=== PATIENT | male | born 1960 | race Two or more races ===

== ENCOUNTER 2021-02-15 17:35 | Emergency (ER) | payer OTHER ==
[~2021-02-15] VITALS: Ht 182.9 cm; Wt 99.8 kg
[2021-02-15] MEDS ORDERED: ONDANSETRON HCL 4 MG/2 ML VIAL IV ONE (17:45)
[2021-02-15] MEDS ORDERED: SODIUM CHLORIDE 0.9% 1,000 ML IV ONE ×2 (17:45→19:45)
[2021-02-15] MEDS ORDERED: PANTOPRAZOLE 40 MG/10 ML VIAL INJ IV ONE (17:45)
[2021-02-15 18:01] LABS: Basophils # (auto) 0.1 10 ^3/uL (0-0.2); Basophils % (auto) 1.2 % (0.0-2.0); Eosinophils # (auto) 0.2 10 ^3/uL (0-0.8); Eosinophils % (auto) 2.6 % (0.0-7.0); Hematocrit 39.2 % (41.0-53.0); Hemoglobin 13.5 g/dL (13.5-17.5); Lymphocytes # (auto) 1.7 10 ^3/uL (0.4-5.4); Lymphocytes % (auto) 21.1 % (10.0-50.0); Mean Corpuscular Hgb Conc. 34.5 g/dL (32.0-36.0); Mean Corpuscular Volume 92.6 fL (80.0-100.0); Monocytes # (auto) 0.8 10 ^3/uL (0-1.3); Monocytes % (auto) 9.9 % (0.0-12.0); Neutrophils # (auto) 5.2 10 ^3/uL (1.6-8.6); Neutrophils % (auto) 65.2 % (37.0-80.0); Nucleated Red Blood Cells % 0.1 %; Red Blood Cells 4.23 10^6/uL (4.5-5.90); Red Cell Distribution Width 17.4 % (11.8-14.3)
[2021-02-15 18:22] LABS: Albumin 3.5 g/dL (3.4-5.0); Anion Gap 16 (5-15); Blood Urea Nitrogen 5 mg/dL (7-18); Calcium 8.8 mg/dL (8.5-10.1); Carbon Dioxide 21 mmol/L (21-32); Chloride 101 mmol/L (98-107); Glucose 130 mg/dL (74-106); Lipase 188 U/L (73-393); Magnesium 1.9 mg/dL (1.6-2.6); Sodium 138 mmol/L (136-145)
[2021-02-15 18:29] LABS: Alanine Aminotransferase 117 U/L (16-61); Alkaline Phosphatase 160 U/L (45-117); Aspartate Aminotransferase 194 U/L (15-37); Bilirubin, Total 0.9 mg/dL (0.2-1.0); GFR African American 195 mL/min; GFR Non-African American 161 mL/min
[2021-02-15 18:38] LABS: INR 1.02 (0.9-1.15); Partial Thromboplastin Time 24.4 sec (23.0-31.2)
[2021-02-15 18:56] LABS: BUN/Creatinine Ratio 9.1
[2021-02-15 18:59] LABS: Potassium 2.8 mmol/L (3.5-5.1)
[2021-02-15] MEDS ORDERED: THIAMINE 100mg/ml INJ (200mg/2ml VIAL) IV ONE (19:45)
[2021-02-15] MEDS: POTASSIUM CHL 20MEQ/100ML 100 ML IV SCH (22:25)
[2021-02-15] MEDS ORDERED: cefTRIAXone 1GM/50ML D5W 50 ML IV ONE (22:30)
[2021-02-16] MEDS: POTASSIUM CHL 20MEQ/100ML 100 ML IV SCH (01:20)
[2021-02-16] MEDS ORDERED: OMEPRAZOLE 20MG/10ML ORAL SUSP PO ONE (02:00)
[2021-02-16] MEDS ORDERED: MORPHINE SULFATE 4 MG/ML SYR/VIAL IV ONE (02:00)
[2021-02-16] MEDS ORDERED: ONDANSETRON HCL 4 MG/2 ML VIAL IV ONE (02:00)
[2021-02-16 04:51] LABS: Urine Bacteria MANY /hpf (None Seen); Urine Blood TRACE /uL (Negative); Urine Mucus FEW (None Seen); Urine Specific Gravity 1.011 (1.001-1.035); Urine WBC 58 /hpf (0 - 3)
[2021-02-16 04:57] LABS: BUN/Creatinine Ratio 9.3; Calcium 7.5 mg/dL (8.5-10.1); Potassium 3.4 mmol/L (3.5-5.1)
[2021-02-16] MEDS ORDERED: LORazepam 2MG/ML-1ML VIAL IV ONE ×2 (07:45)
[2021-02-16 10:02] VITALS: BP 149/98
== END 2021-02-16 10:27 | disposition short-term general hospital (02) ==
LOC: ER 17:35 → EDBD 17:35 → ER 02-16 10:27
DX: R10.84 Generalized abdominal pain (principal); R11.2 Nausea with vomiting, unspecified; F10.20 Alcohol dependence, uncomplicated; R79.89 Other specified abnormal findings of blood chemistry; E87.6 Hypokalemia; I10 Essential (primary) hypertension; G40.909 Epilepsy, unspecified, not intractable, without status epilepticus; E78.5 Hyperlipidemia, unspecified; E66.8 Other obesity; Y90.8 Blood alcohol level of 240 mg/100 ml or more; Z20.822 Contact with and (suspected) exposure to COVID-19; Z68.29 Body mass index [BMI] 29.0-29.9, adult; Z88.0 Allergy status to penicillin; Z79.899 Other long term (current) drug therapy
CPT/HCPCS: 36415; 71045; 74176; 76705; 80048; 80053; 80320; 81001; 83690; 83735; 84484; 85025; 85610; 85730; 87086; 87426; 96361; 96365; 96366; 96367; 96368; 96375; 96376; 99285; C9113; J0696; J2060; J2270; J2405; J3411; J3480; J7030; 93005

== ENCOUNTER 2021-06-22 13:04 | Emergency (ER) | payer OTHER ==
[~2021-06-22] VITALS: Ht 182.9 cm; Wt 90.7 kg
[2021-06-22 15:36] LABS: Hematocrit 43.4 % (41.0-53.0); Hemoglobin 14.3 g/dL (13.5-17.5); Mean Corpuscular Hemoglobin 31.6 pg (28.0-32.0); Mean Corpuscular Hgb Conc. 32.9 g/dL (32.0-36.0); Mean Corpuscular Volume 96.1 fL (80.0-100.0); Red Blood Cells 4.51 10^6/uL (4.5-5.90); Red Cell Distribution Width 15.5 % (11.8-14.3)
[2021-06-22 15:41] LABS: Basophils % (manual) 0 (0.0-2.0); Blast Cells 0; Eosinophils % (manual) 0 (0-7); Metamyelocytes % 0; Myelocytes % 0; Promyelocytes % 0; Reactive Lymphocytes 0
[2021-06-22 15:53] LABS: Albumin 3.7 g/dL (3.4-5.0); Anion Gap 17 (5-15); Blood Urea Nitrogen 13 mg/dL (7-18); Calcium 9.1 mg/dL (8.5-10.1); Carbon Dioxide 25 mmol/L (21-32); Chloride 96 mmol/L (98-107); Glucose 145 mg/dL (74-106); Magnesium 1.7 mg/dL (1.6-2.6); Sodium 138 mmol/L (136-145)
[2021-06-22 15:58] LABS: Alanine Aminotransferase 81 U/L (16-61); Alkaline Phosphatase 249 U/L (45-117); Aspartate Aminotransferase 164 U/L (15-37); BUN/Creatinine Ratio 12.4; GFR African American 92 mL/min; GFR Non-African American 76 mL/min; Total Protein 7.4 g/dL (6.4-8.2)
[2021-06-22 16:13] LABS: Potassium 2.9 mmol/L (3.5-5.1)
[2021-06-22 17:10] LABS: Band Neutrophils % (manual) 1; Lymphocytes % (manual) 13 (10.0-50.0); Monocytes % (manual) 8 (0-12)
[2021-06-22 17:13] VITALS: BP 137/92
[2021-06-22] MEDS ORDERED: POTASSIUM EFFERVESENT TAB 25 MEQ PO STA (19:52)
== END 2021-06-22 20:51 | disposition home or self-care (01) ==
LOC: ER 13:04 → EDBD 13:04 → ER 20:51
DX: E87.6 Hypokalemia (principal); E78.5 Hyperlipidemia, unspecified; I10 Essential (primary) hypertension
CPT/HCPCS: 36415; 70450; 71045; 74176; 80053; 83735; 84484; 85007; 85027; 93005

== ENCOUNTER 2021-06-23 17:38 | Inpatient (IN) | payer OTHER ==
[~2021-06-23] VITALS: Ht 175.3 cm; Wt 101.4 kg
[2021-06-23] MEDS ORDERED: SODIUM CHLORIDE 0.9% 1,000 ML IV ONE ×2 (18:30→19:45)
[2021-06-23 18:45] LABS: Basophils # (auto) 0.1 10 ^3/uL (0-0.2); Basophils % (auto) 0.9 % (0.0-2.0); Eosinophils # (auto) 0 10 ^3/uL (0-0.8); Eosinophils % (auto) 0.2 % (0.0-7.0); Hematocrit 40.9 % (41.0-53.0); Hemoglobin 13.5 g/dL (13.5-17.5); Lymphocytes # (auto) 1.2 10 ^3/uL (0.4-5.4); Lymphocytes % (auto) 12.1 % (10.0-50.0); Mean Corpuscular Hemoglobin 31.4 pg (28.0-32.0); Mean Corpuscular Hgb Conc. 32.9 g/dL (32.0-36.0); Mean Corpuscular Volume 95.3 fL (80.0-100.0); Monocytes % (auto) 10.2 % (0.0-12.0); Neutrophils # (auto) 7.3 10 ^3/uL (1.6-8.6); Neutrophils % (auto) 76.6 % (37.0-80.0); Nucleated Red Blood Cells % 0.1 %; Red Cell Distribution Width 15.6 % (11.8-14.3); White Blood Cell 9.5 10^3/uL (4.4-10.8)
[2021-06-23 19:02] LABS: Calcium 8.1 mg/dL (8.5-10.1)
[2021-06-23 19:09] LABS: BUN/Creatinine Ratio 13.2; Total Protein 6.3 g/dL (6.4-8.2)
[2021-06-23] MEDS ORDERED: AMIODARONE HCL 150 MG in D5W 5% 100 ML IV ONE (19:15)
[2021-06-23] MEDS ORDERED: NOREPINEPHRINE 8 MG/250ML KIT 250 ML IV SCH (19:15)
[2021-06-23 19:17] LABS: Potassium 2.6 mmol/L (3.5-5.1)
[2021-06-23] MEDS ORDERED: AMIODARONE 450mg/250ml AE 250 ML IV SCH (19:30)
[2021-06-23] MEDS ORDERED: LACTATED RINGER'S 1,000 ML IV ONE (19:45)
[2021-06-23] MEDS ORDERED: ACETAMINOPHEN 500 MG TAB PO ONE (20:30)
[2021-06-23] MEDS: POTASSIUM CHL 20MEQ/100ML 100 ML IV SCH ×3 (20:31→23:28)
[2021-06-23] MEDS ORDERED: MORPHINE SULFATE INJECTION 2 MG/ML SYRG IV PRN (21:15)
[2021-06-23] MEDS ORDERED: NITROGLYCERIN 0.4 MG SL TAB SL PRN (21:15)
[2021-06-23] MEDS ORDERED: ONDANSETRON HCL 4 MG/2 ML VIAL IV PRN (21:15)
[2021-06-23 21:53] LABS: Lactic Acid w/Reflex 4.4 mmol/L (0.4-2.0)
[2021-06-23] MEDS: MAGNESIUM SULFATE 1GM/100ML 100 ML IV SCH ×3 (22:08→23:20)
[2021-06-23 23:50] VITALS: BP 128/80
[2021-06-24 00:30] VITALS: BP 128/80
[2021-06-24] MEDS: AMIODARONE 450mg/250ml AE 250 ML IV SCH ×2 (01:54→17:13)
[2021-06-24 05:00] VITALS: BP 130/68
[2021-06-24 05:38] LABS: Basophils # (auto) 0.1 10 ^3/uL (0-0.2); Basophils % (auto) 0.8 % (0.0-2.0); Eosinophils # (auto) 0 10 ^3/uL (0-0.8); Eosinophils % (auto) 0.4 % (0.0-7.0); Hematocrit 35.8 % (41.0-53.0); Hemoglobin 11.8 g/dL (13.5-17.5); Lymphocytes # (auto) 1.1 10 ^3/uL (0.4-5.4); Lymphocytes % (auto) 13.4 % (10.0-50.0); Mean Corpuscular Hemoglobin 31.7 pg (28.0-32.0); Monocytes # (auto) 0.7 10 ^3/uL (0-1.3); Monocytes % (auto) 8.5 % (0.0-12.0); Neutrophils # (auto) 6.1 10 ^3/uL (1.6-8.6); Neutrophils % (auto) 76.9 % (37.0-80.0); Nucleated Red Blood Cells % 0.1 %; Red Blood Cells 3.73 10^6/uL (4.5-5.90); Red Cell Distribution Width 15.4 % (11.8-14.3); White Blood Cell 7.9 10^3/uL (4.4-10.8)
[2021-06-24 05:59] LABS: Albumin 2.6 g/dL (3.4-5.0); Anion Gap 11 (5-15); Blood Urea Nitrogen 11 mg/dL (7-18); Calcium 7.2 mg/dL (8.5-10.1); Carbon Dioxide 24 mmol/L (21-32); Chloride 100 mmol/L (98-107); Glucose 135 mg/dL (74-106); Sodium 135 mmol/L (136-145)
[2021-06-24 06:01] LABS: Alanine Aminotransferase 47 U/L (16-61); Aspartate Aminotransferase 84 U/L (15-37); BUN/Creatinine Ratio 14.5; GFR African American 134 mL/min; GFR Non-African American 111 mL/min
[2021-06-24 06:06] LABS: Alkaline Phosphatase 163 U/L (45-117); Bilirubin, Total 2.4 mg/dL (0.2-1.0); Total Protein 5.6 g/dL (6.4-8.2)
[2021-06-24 06:26] LABS: Potassium 2.8 mmol/L (3.5-5.1)
[2021-06-24] MEDS ORDERED: POTASSIUM CHL 20 Meq TABLET PO ONE (07:15)
[2021-06-24] MEDS: PANTOPRAZOLE 40 MG TAB PO SCH (08:05)
[2021-06-24] MEDS: ASPirin 81 mg TAB PO SCH (08:06)
[2021-06-24 09:00] VITALS: BP 144/85
[2021-06-24] MEDS: chlordiazePOXIDE HCL 25 MG CAP PO PRN ×2 (11:27→12:46)
[2021-06-24] MEDS ORDERED: METOPROLOL TARTRATE 25 MG TAB PO ONE (11:30)
[2021-06-24] MEDS ORDERED: cloNIDine HCL 0.1 MG TAB PO PRN (11:30)
[2021-06-24] MEDS ORDERED: FOLIC ACID 1 MG, MULTIPLE VITAMIN 10 ML, MAGNESIUM SULF SDV 50% 8 MEQ, THIAMINE INJ 100... INJ SCH ×5 (12:00)
[2021-06-24 13:00] VITALS: BP 140/90
[2021-06-24 13:02] LABS: Urine Bacteria MOD /hpf (None Seen); Urine Blood Negative /uL (Negative); Urine Mucus FEW (None Seen); Urine Specific Gravity 1.015 (1.001-1.035); Urine WBC 12 /hpf (0 - 3)
[2021-06-24 15:08] LABS: Potassium 2.9 mmol/L (3.5-5.1)
[2021-06-24] MEDS ORDERED: POTASSIUM CHLORIDE 60 MEQ, LIDOCAINE 1% (LOCAL ANESTH.) 6 ML in SODIUM CHL 0.9% 500 ML IV ONE (15:15)
[2021-06-24] MEDS ORDERED: ATO40T PO (16:19)
[2021-06-24] MEDS ORDERED: ALL100T GT (16:19)
[2021-06-24] MEDS ORDERED: OMEP20TA PO (16:40)
[2021-06-24] MEDS ORDERED: PHE100C PO ×2 (16:40)
[2021-06-24] MEDS ORDERED: LISI20TA28 PO (16:40)
[2021-06-24 17:00] VITALS: BP 125/82
[2021-06-24 22:00] VITALS: BP 138/91
[2021-06-24] MEDS: PHENYTOIN SODIUM 100 MG CAP PO SCH (23:06)
[2021-06-24] MEDS: IBUPROFEN 600 MG TAB PO PRN (23:06)
[2021-06-24] MEDS: METOPROLOL TARTRATE 25 MG TAB PO SCH (23:07)
[2021-06-25 05:00] VITALS: BP 143/99
[2021-06-25] MEDS: IBUPROFEN 600 MG TAB PO PRN (05:43)
[2021-06-25] MEDS: PHENYTOIN SODIUM 100 MG CAP PO SCH ×2 (05:43→21:28)
[2021-06-25 05:57] LABS: BUN/Creatinine Ratio 13.2; Calcium 7.8 mg/dL (8.5-10.1); Magnesium 1.9 mg/dL (1.6-2.6); Potassium 3.3 mmol/L (3.5-5.1)
[2021-06-25 09:00] VITALS: BP 129/82
[2021-06-25] MEDS: ASPirin 81 mg TAB PO SCH (10:10)
[2021-06-25] MEDS: PANTOPRAZOLE 40 MG TAB PO SCH (10:12)
[2021-06-25] MEDS: METOPROLOL TARTRATE 25 MG TAB PO SCH ×2 (10:12→21:36)
[2021-06-25] MEDS: AMIODARONE 450mg/250ml AE 250 ML IV SCH ×2 (10:12→22:30)
[2021-06-25] MEDS: ALLOPURINOL 100 MG TAB PO SCH (10:12)
[2021-06-25] MEDS ORDERED: POTASSIUM CHL 20 Meq TABLET PO ONE (11:30)
[2021-06-25 13:00] VITALS: BP 115/85
[2021-06-25] MEDS: traMADol HCL 50 MG TAB PO PRN ×2 (13:33→22:58)
[2021-06-25 17:00] VITALS: BP 138/99
[2021-06-25] MEDS ORDERED: LIDOCAINE 5% TOPICAL PATCH TOP ONE (19:45)
[2021-06-25 22:00] VITALS: BP 136/82
[2021-06-26 05:00] VITALS: BP 129/83
[2021-06-26] MEDS: PHENYTOIN SODIUM 100 MG CAP PO SCH (06:09)
[2021-06-26 06:37] LABS: Basophils # (auto) 0.1 10 ^3/uL (0-0.2); Basophils % (auto) 0.7 % (0.0-2.0); Eosinophils # (auto) 0.2 10 ^3/uL (0-0.8); Eosinophils % (auto) 2.8 % (0.0-7.0); Hematocrit 34.6 % (41.0-53.0); Hemoglobin 11.6 g/dL (13.5-17.5); Lymphocytes # (auto) 0.9 10 ^3/uL (0.4-5.4); Mean Corpuscular Hemoglobin 32.7 pg (28.0-32.0); Mean Corpuscular Hgb Conc. 33.6 g/dL (32.0-36.0); Mean Corpuscular Volume 97.3 fL (80.0-100.0); Monocytes # (auto) 0.9 10 ^3/uL (0-1.3); Monocytes % (auto) 10.3 % (0.0-12.0); Neutrophils # (auto) 6.3 10 ^3/uL (1.6-8.6); Neutrophils % (auto) 75.2 % (37.0-80.0); Red Blood Cells 3.56 10^6/uL (4.5-5.90); Red Cell Distribution Width 15.6 % (11.8-14.3); White Blood Cell 8.4 10^3/uL (4.4-10.8)
[2021-06-26 06:43] LABS: Calcium 8.6 mg/dL (8.5-10.1); Potassium 3.9 mmol/L (3.5-5.1)
[2021-06-26 06:46] LABS: BUN/Creatinine Ratio 9.5
[2021-06-26 09:00] VITALS: BP 147/100
[2021-06-26] MEDS ORDERED: THIAMINE 100mg/ml INJ (200mg/2ml VIAL) IV SCH (10:00)
[2021-06-26] MEDS: ASPirin 81 mg TAB PO SCH (11:09)
[2021-06-26] MEDS: METOPROLOL TARTRATE 25 MG TAB PO SCH (11:09)
[2021-06-26] MEDS: ALLOPURINOL 100 MG TAB PO SCH (11:09)
[2021-06-26] MEDS: PANTOPRAZOLE 40 MG TAB PO SCH (11:10)
[2021-06-26 13:00] VITALS: BP 143/85
[2021-06-26] MEDS ORDERED: LIDOCAINE 5% TOPICAL PATCH TOP SCH (22:00)
== END 2021-06-26 14:26 | disposition home or self-care (01) | DRG 309 ==
LOC: EDBD 17:38 → EDUNIT# 17:38 → ER 17:38 → TELE 21:14 → TELE-CENTR 23:35
PROVIDERS: ADMIT Nurse Practitioner; ATTEND Internal Medicine
DX: I48.91 Unspecified atrial fibrillation (principal); D68.69 Other thrombophilia; S22.41XA Multiple fractures of ribs, right side, initial encounter for closed fracture; E44.0 Moderate protein-calorie malnutrition; D69.6 Thrombocytopenia, unspecified; E66.9 Obesity, unspecified; E78.5 Hyperlipidemia, unspecified; E83.42 Hypomagnesemia; E87.6 Hypokalemia; F10.10 Alcohol abuse, uncomplicated; G40.909 Epilepsy, unspecified, not intractable, without status epilepticus; K21.9 Gastro-esophageal reflux disease without esophagitis; R55 Syncope and collapse; I10 Essential (primary) hypertension; Z20.822 Contact with and (suspected) exposure to COVID-19; K70.30 Alcoholic cirrhosis of liver without ascites; M10.9 Gout, unspecified; E87.8 Other disorders of electrolyte and fluid balance, not elsewhere classified; R07.9 Chest pain, unspecified; W18.39XA Other fall on same level, initial encounter; Z79.01 Long term (current) use of anticoagulants; Z79.899 Other long term (current) drug therapy; Z82.49 Family history of ischemic heart disease and other diseases of the circulatory system; Z83.3 Family history of diabetes mellitus; Z86.73 Personal history of transient ischemic attack (TIA), and cerebral infarction without residual deficits; Z90.49 Acquired absence of other specified parts of digestive tract; Z88.0 Allergy status to penicillin; Y93.89 Activity, other specified; Y92.89 Other specified places as the place of occurrence of the external cause; Y99.8 Other external cause status; Z68.31 Body mass index [BMI] 31.0-31.9, adult
CPT/HCPCS: 36415; 71045; 71250; 80048; 80053; 80185; 81001; 83605; 83735; 83880; 84132; 84443; 84484; 85025; 85379; 87040; 87426; 93005; 93306; 96365; 96366; 96367; 99291; G0378; J2001; J3480; J7060

== ENCOUNTER 2022-01-22 12:17 | Emergency (ER) | payer OTHER ==
[~2022-01-22] VITALS: Ht 182.9 cm; Wt 104.3 kg
[~2022-01-22 12:17] MED LIST: ALL100T GT; ATO40T PO; LISI20TA28 PO; OMEP20TA PO; PHE100C PO
[2022-01-22] MEDS ORDERED: LORazepam 2MG/ML-1ML VIAL ONE (12:31)
[2022-01-22] MEDS ORDERED: LORazepam 2MG/ML-1ML VIAL IV ONE (12:45)
[2022-01-22 13:24] LABS: Basophils # (auto) 0.1 10 ^3/uL (0-0.2); Eosinophils # (auto) 0 10 ^3/uL (0-0.8); Eosinophils % (auto) 0.6 % (0.0-7.0); Hematocrit 33.2 % (41.0-53.0); Lymphocytes # (auto) 1.6 10 ^3/uL (0.4-5.4); Lymphocytes % (auto) 24.8 % (10.0-50.0); Mean Corpuscular Hemoglobin 28.8 pg (28.0-32.0); Mean Corpuscular Hgb Conc. 33.2 g/dL (32.0-36.0); Mean Corpuscular Volume 86.5 fL (80.0-100.0); Monocytes # (auto) 0.5 10 ^3/uL (0-1.3); Monocytes % (auto) 8.1 % (0.0-12.0); Neutrophils # (auto) 4.1 10 ^3/uL (1.6-8.6); Neutrophils % (auto) 64.5 % (37.0-80.0); Nucleated Red Blood Cells % 0.1 %; Red Blood Cells 3.84 10^6/uL (4.5-5.90); Red Cell Distribution Width 14.7 % (11.8-14.3); White Blood Cell 6.3 10^3/uL (4.4-10.8)
[2022-01-22 13:43] LABS: Albumin 3.2 g/dL (3.4-5.0); Calcium 8.4 mg/dL (8.5-10.1)
[2022-01-22] MEDS ORDERED: SODIUM CHLORIDE 0.9% 500 ML IVB ONE (13:45)
[2022-01-22] MEDS ORDERED: SODIUM CHLORIDE 0.9% 1,000 ML IV ONE (13:45)
[2022-01-22 13:46] LABS: Total Protein 6.3 g/dL (6.4-8.2)
[2022-01-22 14:13] LABS: Magnesium 1.8 mg/dL (1.6-2.6)
[2022-01-22] MEDS ORDERED: PHENYTOIN IV DILANTIN 500 MG in SODIUM CHL 0.9% 100 ML IV ONE (15:15)
[2022-01-22] MEDS ORDERED: ONDANSETRON HCL 4 MG/2 ML VIAL IV ONE (16:00)
[2022-01-22] MEDS ORDERED: POTASSIUM EFFERVESENT TAB 25 MEQ PO ONE (17:00)
[2022-01-22] MEDS ORDERED: FOLIC ACID 1 MG, MULTIPLE VITAMIN 10 ML, MAGNESIUM SULF SDV 50% 8 MEQ, THIAMINE INJ 100... INJ SCH ×5 (17:00)
[2022-01-22] MEDS ORDERED: FOLITAB22 PO (18:30)
[2022-01-22] MEDS ORDERED: THIA100T10 GT (18:30)
[2022-01-22 18:45] VITALS: BP 152/93
== END 2022-01-22 18:48 | disposition home or self-care (01) ==
LOC: EDBD 12:17 → ER 12:17
DX: G40.909 Epilepsy, unspecified, not intractable, without status epilepticus (principal); F10.10 Alcohol abuse, uncomplicated; E87.6 Hypokalemia; E46 Unspecified protein-calorie malnutrition; E78.5 Hyperlipidemia, unspecified; M10.9 Gout, unspecified; I10 Essential (primary) hypertension; Z90.49 Acquired absence of other specified parts of digestive tract; Z86.73 Personal history of transient ischemic attack (TIA), and cerebral infarction without residual deficits
CPT/HCPCS: 36415; 70450; 71045; 80053; 80185; 80320; 83735; 84484; 85025; 93005; 96361; 96365; 96367; 96375; 99285; J1165; J2060; J3411; J3475; J7030; J7040

== ENCOUNTER 2022-01-24 10:27 | Emergency (ER) | payer OTHER ==
[~2022-01-24] VITALS: Ht 177.8 cm; Wt 95.3 kg
[~2022-01-24 10:27] MED LIST changes: +FOLITAB22 PO; +THIA100T10 GT
[2022-01-24 11:37] LABS: Basophils # (auto) 0.1 10 ^3/uL (0-0.2); Basophils % (auto) 1.1 % (0.0-2.0); Eosinophils # (auto) 0 10 ^3/uL (0-0.8); Eosinophils % (auto) 0.2 % (0.0-7.0); Hematocrit 35.5 % (41.0-53.0); Hemoglobin 11.6 g/dL (13.5-17.5); Lymphocytes # (auto) 1.2 10 ^3/uL (0.4-5.4); Lymphocytes % (auto) 10.2 % (10.0-50.0); Mean Corpuscular Hemoglobin 28.7 pg (28.0-32.0); Mean Corpuscular Hgb Conc. 32.7 g/dL (32.0-36.0); Mean Corpuscular Volume 87.5 fL (80.0-100.0); Monocytes % (auto) 8.8 % (0.0-12.0); Neutrophils # (auto) 9.1 10 ^3/uL (1.6-8.6); Neutrophils % (auto) 79.7 % (37.0-80.0); Nucleated Red Blood Cells % 0.1 %; Red Blood Cells 4.05 10^6/uL (4.5-5.90); Red Cell Distribution Width 14.4 % (11.8-14.3); White Blood Cell 11.3 10^3/uL (4.4-10.8)
[2022-01-24 12:03] LABS: Albumin 3.2 g/dL (3.4-5.0); BUN/Creatinine Ratio 7.1; Calcium 8.6 mg/dL (8.5-10.1)
[2022-01-24 12:05] LABS: Bilirubin, Total 0.6 mg/dL (0.2-1.0); Total Protein 6.5 g/dL (6.4-8.2)
[2022-01-24] MEDS ORDERED: SODIUM CHLORIDE 0.9% 500 ML IV ONE (15:45)
[2022-01-24] MEDS ORDERED: ONDANSETRON HCL 4 MG/2 ML VIAL IV ONE ×2 (15:45→18:30)
[2022-01-24] MEDS ORDERED: SODIUM CHLORIDE 0.9% 1,000 ML IV ONE (17:30)
[2022-01-24] MEDS ORDERED: chlordiazePOXIDE HCL 25 MG CAP PO ONE (17:30)
[2022-01-24 19:21] VITALS: BP 156/85
== END 2022-01-24 19:35 | disposition home or self-care (01) ==
LOC: EDBD 10:27 → ER 10:27 → EDUNIT# 10:27 → ER 19:35
DX: E87.2 Acidosis (principal); R11.2 Nausea with vomiting, unspecified; F10.10 Alcohol abuse, uncomplicated; I10 Essential (primary) hypertension; E78.5 Hyperlipidemia, unspecified; Y90.9 Presence of alcohol in blood, level not specified; Z86.73 Personal history of transient ischemic attack (TIA), and cerebral infarction without residual deficits; Z90.49 Acquired absence of other specified parts of digestive tract; Z88.0 Allergy status to penicillin
CPT/HCPCS: 36415; 70450; 80053; 80320; 84484; 85025; 93005; 96361; 96374; 96376; 99285; J2405; J7030